=== PATIENT | male | born 1950 | race Caucasian/White ===

== ENCOUNTER 2016-03-20 08:07 | Observation (INO) | payer MEDICARE ==
--- NOTE | 2016-03-13 10:52 | MH ---
cc: KIT CONTRERAS DATE OF ADMISSION: 03/20/2016 PREOPERATIVE DIAGNOSIS: Rotator cuff and right shoulder. PROCEDURE Right shoulder arthroscopy, subacromial decompression with possible rotator cuff repair. CHIEF COMPLAINT AND HISTORY OF PRESENT ILLNESS 65-year-old male with a long history of right shoulder problems. The patient has a history of a left shoulder disarticulation and uses his right upper extremity for all his activities. The patient is however active with golf. He has had progressive right shoulder pain. He has had several treatment modalities in the past including injection, therapy, medication and activity modification with transient relief. The patient did undergo an MRI scan evaluation which showed a full-thickness distal supraspinatus tendon tear. There was partial tearing of the distal subscapularis and medial subluxation of the biceps with moderate to severe glenohumeral joint effusion, distal infraspinatus tendinosis and mild tiny atrophy of the rotator cuff. The patient is very limited in his activity. He also has pain at night and with use. He has been scheduled for previous surgical management on two occasions. However cancelled on his own once and the last time it was cancelled secondary to medical history. The patient does understand the possibility of irreparable rotator cuff tear his present and may not improve his symptomatology. PAST MEDICAL HISTORY: His past medical history is significant for heart disease, hypertension and hyperlipidemia. PAST SURGICAL HISTORY: Previous surgeries include below-knee amputation on the left, left total hip arthroplasty left upper extremity disarticulation. MEDICATIONS: Current medications are metoprolol warfarin ALLERGIES the patient denies drug allergy. FAMILY HISTORY: Family history is significant for cancer. SOCIAL HISTORY The patient denies tobacco and alcohol use. He is single and unemployed. PHYSICAL EXAMINATION Otherwise healthy-appearing male in no obvious distress. HEENT: Normocephalic, atraumatic. Pupils equal, round, reactive to light. Extraocular muscles intact. Oropharynx is clear. NECK: Neck is supple. LUNGS: Lungs are clear to auscultation. HEART: The heart has regular rate and rhythm. ABDOMEN: The abdomen is soft, nondistended. Bowel sounds are present. GENITOURINARY: Genitourinary deferred. RECTUM: Rectal examinations are deferred. EXTREMITIES: The extremities revealed a left upper extremity disarticulation. He has a left below-knee amputation. The right shoulder has no overlying skin change or palpable tenderness. He has a minimally restricted range of motion with impingement. There is pain and mild weakness to supraspinatus and bicipital testing. There is no evidence of instability and neurologically no focal deficit. ASSESSMENT Rotator cuff tear right shoulder. PLAN Given the alternatives of treatment the patient does wish to proceed with arthroscopic evaluation for decompression and rotator cuff repair of possible. The nature of the planned surgical procedure, risks, expected benefits, as well as the postoperative expectations have been discussed with him in detail on several occasions. In addition the alternatives of treatment and risks of same were discussed. The possibility of an irreparable tear and/or the procedure not improving his symptomatology was discussed and he acknowledges full understanding and consents to it. MD CLAUDIA Owen/major /10:46 PM /10:42 AM
[~2016-03-20] VITALS: Ht 177.8 cm; Wt 96.1 kg
[~2016-03-20 08:07] MED LIST: APIX5TAB PO; ENOX100I SQ; LISI-515 PO
[2016-03-20] MEDS: CHLORHEXIDINE GLUCONATE 4% SOLN 120 ML BTL TOP SCH (08:45)
[2016-03-20] MEDS ORDERED: VANCOMYCIN 1000 MG/NS 250 ML (for <70 kg) IV SCH ×2 (08:45)
[2016-03-20] MEDS ORDERED: INSULIN HUMAN REGULAR 1,000 UNITS/10 ML VIAL SQ PRN (08:45)
[2016-03-20] MEDS: LACTATED RINGER'S 1000 ML IV SCH (08:45)
[2016-03-20] MEDS: SODIUM CHLORID 0.9% 500 ML IV SCH (08:45)
[2016-03-20] MEDS ORDERED: METOPROLOL TARTRATE 25 MG TAB PO PRN (08:45)
[2016-03-20 08:52] VITALS: BP 163/69; PULSE 89; RESP 18; TEMP 97.9; O2SAT 94
[2016-03-20] MEDS ORDERED: CLINDAMYCIN 600 MG/NS 100 ML IV SCH ×2 (09:00)
[2016-03-20] MEDS ORDERED: SODIUM CHLORIDE 0.9% INJ 100 ML ONE (09:16)
[2016-03-20] MEDS ORDERED: EPINEPHrine HCL (1:1000) 30 MG/30 ML VIAL ONE (09:27)
[2016-03-20] MEDS ORDERED: BUPIVACAINE HCL PF 0.5% 30 ML VIAL ONE (09:27)
[2016-03-20] MEDS ORDERED: ACETAMINOPHEN 1000 MG/100 ML VIAL IV ONE (11:15)
[2016-03-20] MEDS ORDERED: MIDAZOLAM HCL 2 MG/2 ML VIAL ONE ×2 (11:15→14:46)
[2016-03-20] MEDS ORDERED: HYDROmorphone HCL PF 2 MG/ML VIAL ONE (11:16)
[2016-03-20] MEDS ORDERED: fentaNYL CITRATE 250 MCG/5 ML AMP ONE (11:16)
[2016-03-20] MEDS ORDERED: PROPOFOL 200 MG/20 ML AMP IV ONE (11:25)
[2016-03-20] MEDS ORDERED: NEOSTIGMINE 3 MG/3 ML SYR IV ONE (11:25)
[2016-03-20] MEDS ORDERED: PHENYLEPH/NS 1000 MCG/10 ML SYR IV ONE (11:25)
[2016-03-20] MEDS ORDERED: ONDANSETRON HCL 4 MG/2 ML VIAL IV PUSH ONE (11:25)
[2016-03-20] MEDS ORDERED: BUPIVACAINE/EPINEPHRINE 0.5% PF 30 ML VIAL ONE (11:31)
--- NOTE | 2016-03-20 14:12 | PD.OP ---
cc: Nam Aceves MD Operative Report Date of Surgery: Mar 20, 2016 Preoperative Diagnosis: (1) Complete rotator cuff tear or rupture of right shoulder, not specified as traumatic Postoperative Diagnosis: (1) Complete rotator cuff tear or rupture of right shoulder, not specified as traumatic (2) Traumatic partial tear of biceps tendon Procedure: Right shoulder arthroscopy, subacromial decompression, debridement of partial biceps tendon tear with mini open rotator cuff repair Implants: [employer] multi fix 5.5 anchors Anesthesia: Gen. Surgeon: Nam Aceves Piped Pocket Machine Operator(s): Cristal Pardo PA-C (Ashley) The surgical procedure was assisted by my physician's chemical laboratory assistant. Her presence was necessary throughout the case for manipulation and positioning of the surgical extremity. My PA was assisting me throughout the duration of this procedure. The skill set of the physician chemical laboratory assistant was medically necessary to complete this procedure. During the surgical case the surgical pathologist was working at the back table and the physician chemical laboratory assistant was directly assisting me. Operation and Findings: Indications: This 65-year-old male has a long history of right shoulder problems. The patient has had a previous left shoulder disarticulation and uses his right upper extremity for all activities. He is also active with golf. He's had progressive pain in the right shoulder. He has been unresponsive to treatment including injection, therapy, medication and activity modification. An MRI scan was completed which revealed a full-thickness tear of the supraspinatus. He has had previous scheduled surgery which has been canceled on 3 occasions. He now presents for arthroscopic evaluation with repair as indicated. The patient understands a functional limitations associated with the procedure Procedure and findings: The patient was taken to the operative suite and after undergoing an adequate level of general anesthesia as well as placement of a central line by anesthesia was placed in the lateral decubitus position on the operating table. His examination did not reveal any restricted mobility or instability. The right upper extremity was positioned in a shoulder august in approximately 70 of abduction and 30 of forward flexion. It was then prepped and draped in usual sterile fashion with Betadine. Preoperative antibiotics consisted of clindamycin 900 mg and vancomycin 1 g IV. Standard arthroscopic portals were status with a posterior camera portal. The joint was entered bluntly with a trocar. Distention of the joint was maintained with an arthroscopic pump. An anterior incision and portal was established and the interval between the biceps and subscapularis tendons. Inspection of the glenohumeral joint revealed no articular cartilage of the mallet. There was moderate fraying of the biceps. There was an obvious large tear of the supraspinatus with medial retraction. The posterior aspect of the rotator cuff appeared intact. An arthroscopic shaver was utilized to debride the undersurface of the supraspinatus tear as well as the partial biceps tendon tear. Once this was completed the arthroscope and internal rotation were removed from the glenohumeral joint. The arm was then positioned in 30 of abduction and neutral forward flexion. The same posterior skin incision was used for a subacromial camera portal. A separate lateral portal was then established two fingerbreadths distal to the acromial tip in the anterior one third. A very thickened and inflamed subacromial bursa was excised. An acromioplasty was completed with an arthroscopic bur abrading the undersurface of the acromion up to the level of the deltoid insertion anteriorly allowing the coracoacromial ligament to retract. Additional release was completed with electric cautery device. The bursal surface of rotator cuff was inspected and the full-thickness tear again noted. There was a longitudinal component and posterior retraction. Once adequate decompression had been completed the arthroscope and instrumentation were removed. The lateral portal incision was then extended for a distance of the proximal a 4 cm. The muscular fascia was incised and split longitudinally. The subdeltoid bursa was partially excised. The rotator cuff tear was identified. The longitudinal component was closed primarily. Magnum wire and ultra tape were placed into the tendon edge. Roughening of the tuberosity was accomplished with a rongeur. 2 punch holes were made. The multi fix anchors were then loaded and seated. This gave a nice repair. The wound was then thoroughly irrigated. It was closed in layers utilizing 0 Vicryl suture on the muscular fascia, 2-0 Vicryl suture and the subcutaneous tense tissue and shree on the skin. Sterile dressings were applied. The patient was awakened, transferred to the hospital stretcher and taken to the recovery room in stable condition. Estimated blood loss: Approximately 50 cc Complications: None Aceves,Nam K MD Mar 20, 2016 14:11
[2016-03-20] MEDS ORDERED: SODIUM CHLORIDE 0.9% FLUSH 5 ML FLUSH IVF PRN (14:15)
[2016-03-20] MEDS ORDERED: MORPHINE SULFATE 4 MG/ML INJ IV PUSH PRN (14:15)
[2016-03-20] MEDS ORDERED: *morphine SULFATE 8 MG/ML PERIprocedure ONLY ONE ×2 (14:37→14:55)
[2016-03-20] MEDS ORDERED: *ONDANSETRON 4 MG VIAL PERIprocedural Use ONLY ONE (14:57)
[2016-03-20] MEDS: LACTATED RINGER'S 1000 ML INJ 1,000 ML IV SCH (15:30)
--- NOTE | 2016-03-20 16:11 | RADRPT ---
EXAM DATE/TIME: 03/20/2016 15:01 [facility] COMPARISON: No previous studies available for comparison. INDICATIONS : Central line placement. MEDICAL HISTORY : None. SURGICAL HISTORY : None. ENCOUNTER: Initial ACUITY: 1 day PAIN SCORE: Non-responsive. LOCATION: Bilateral chest FINDINGS: The heart is enlarged. Patchiness is noted within the left lung base consistent with atelectasis and/ or mild infiltrate. The right lung is clear. CONCLUSION: 1. Left basilar patchiness consistent with atelectasis and/or infiltrate. 2. Cardiomegaly. Alfredo Campbell MD on March 20, 2016 at 16:06 Board Certified Radiologist. This report was verified electronically.
[2016-03-20 16:34] VITALS: BP 166/80; PULSE 85; RESP 18; TEMP 95.6; O2SAT 94
[2016-03-20] MEDS: ONDANSETRON HCL 4 MG/2 ML VIAL IV PRN (16:48)
[2016-03-20] MEDS: oxyCODONE/ACETAMINOPHEN 5 MG/325 MG TAB PO PRN (19:09)
[2016-03-20 20:15] VITALS: BP 190/88; PULSE 96; RESP 20; TEMP 96.1; O2SAT 97
[2016-03-20] MEDS: MORPHINE SULFATE 8 MG/ML INJ IV PUSH PRN (20:25)
[2016-03-20] MEDS: SODIUM CHLORIDE 0.9% FLUSH 5 ML FLUSH IVF SCH (21:00)
[2016-03-20] MEDS: APIXABAN 5 MG TABLET PO SCH (21:00)
[2016-03-20 22:26] VITALS: O2SAT 97
[2016-03-21] VITALS (8 sets, daily range): BP systolic 134–199; BP diastolic 59–105; PULSE 84–104; RESP 16–20; TEMP 95.4–98.6; O2SAT 94–97
[2016-03-21] MEDS: MORPHINE SULFATE 8 MG/ML INJ IV PUSH PRN ×2 (00:13→06:11)
[2016-03-21] MEDS: SODIUM CHLORID 0.9% 500 ML IV SCH (01:25)
[2016-03-21] MEDS: oxyCODONE/ACETAMINOPHEN 5 MG/325 MG TAB PO PRN ×4 (03:50→21:45)
[2016-03-21] MEDS: LACTATED RINGER'S 1000 ML INJ 1,000 ML IV SCH (04:32)
--- NOTE | 2016-03-21 06:42 | PD.ORT.PN ---
Subjective Post Op Day #: 1 Pain Scale: 3 Subjective Remarks The patient is awake and alert and answers questions appropriately. He is having moderate discomfort. It is controlled with medication. He is having the expected difficulty moving about secondary to his left shoulder disarticulation Objective Vitals Vital Signs Date Time Temp Pulse Resp B/P Pulse Ox O2 Delivery O2 Flow Rate FiO2 03/21/16 00:35 95.4 100 19 140/59 94 03/20/16 22:26 97 21 03/20/16 20:15 96.1 96 20 190/88 97 03/20/16 16:34 95.6 85 18 166/80 94 03/20/16 16:00 84 16 139/69 95 Nasal Cannula 3 03/20/16 15:45 80 16 140/69 95 Nasal Cannula 3 03/20/16 15:30 76 16 150/62 95 Nasal Cannula 3 03/20/16 15:15 74 16 151/70 95 Nasal Cannula 3 03/20/16 15:00 74 16 152/74 95 Nasal Cannula 3 03/20/16 14:45 80 16 153/80 94 Nasal Cannula 3 03/20/16 14:30 82 16 159/85 94 Nasal Cannula 3 03/20/16 14:20 97.7 86 16 166/85 93 Nasal Cannula 3 03/20/16 08:52 97.9 89 18 163/69 94 I/O 03/20/16 03/20/16 03/20/16 03/21/16 03/21/16 03/21/16 07:00 15:00 23:00 07:00 15:00 23:00 Intake Total 290 ml Balance 290 ml Intake Oral 240 ml IV Total 50 ml # Voids 1 # Bowel Movements 0 Procedures Right shoulder arthroscopy, subacromial decompression with mini open rotator cuff repair 03/20/16 Objective Remarks The patient is awake and alert and answers questions properly. His right shoulder dressing is dry and intact. He moves his elbow and wrist freely. Neurologically no focal deficit. Assessment & Plan Problem List: (1) Complete rotator cuff tear or rupture of right shoulder, not specified as traumatic Assessment and Plan The patient's orthopedic status is stable postoperative day #1. He is having moderate discomfort and because of his functional limitations with his only functional extremity immobilized once to stay another day. This will allow him to make arrangements for home. Anticipate discharge 03/22/16. Nam Aceves MD Mar 21, 2016 06:42
[2016-03-21] MEDS: CHLORHEXIDINE GLUCONATE 4% SOLN 120 ML BTL TOP SCH (08:45)
[2016-03-21] MEDS: LACTATED RINGER'S 1000 ML IV SCH (08:45)
[2016-03-21] MEDS: LISINOPRIL 20 MG TAB PO SCH (09:21)
[2016-03-21] MEDS: APIXABAN 5 MG TABLET PO SCH ×2 (09:21→21:44)
[2016-03-21] MEDS: SODIUM CHLORIDE 0.9% FLUSH 5 ML FLUSH IVF SCH ×2 (09:21→21:44)
[2016-03-21] MEDS ORDERED: cloNIDine HCL 0.1 MG TAB PO ONE (19:30)
[2016-03-21] MEDS ORDERED: MORPHINE SULFATE 4 MG/ML INJ IV PUSH PRN (19:30)
[2016-03-21] MEDS: ONDANSETRON HCL 4 MG/2 ML VIAL IV PRN (19:58)
[2016-03-22 00:10] VITALS: BP 133/79; PULSE 99; RESP 19; TEMP 97.8; O2SAT 94
[2016-03-22] MEDS: oxyCODONE/ACETAMINOPHEN 5 MG/325 MG TAB PO PRN ×2 (02:01→09:31)
[2016-03-22 03:42] VITALS: BP 150/86; PULSE 86; RESP 16; TEMP 98.4; O2SAT 93
--- NOTE | 2016-03-22 07:25 | PD.ORT.PN ---
Subjective Post Op Day #: 2 Subjective Remarks Pt is laying comfortably in bed, awake and answering questions appropriately. He admits his right shoulder pain is under control today. He states he has been ambulating to use the restroom 'okay'. He is not in his sling. No other complaints noted. Objective Vitals Vital Signs Date Time Temp Pulse Resp B/P Pulse Ox O2 Delivery O2 Flow Rate FiO2 03/22/16 03:42 98.4 86 16 150/86 93 03/22/16 00:10 97.8 99 19 133/79 94 03/21/16 20:00 98.6 93 20 163/82 95 03/21/16 18:04 21 03/21/16 17:10 195/69 03/21/16 16:50 97.4 95 20 175/105 96 03/21/16 14:58 95 199/94 03/21/16 12:00 97.4 84 16 182/69 97 03/21/16 10:23 17 03/21/16 07:51 96.9 104 18 134/73 97 I/O 03/21/16 03/21/16 03/21/16 03/22/16 03/22/16 03/22/16 07:00 15:00 23:00 07:00 15:00 23:00 Intake Total 240 ml 1280 ml 600 ml 480 ml Balance 240 ml 1280 ml 600 ml 480 ml Intake Oral 240 ml 1280 ml 600 ml 480 ml # Voids 2 4 5 2 # Bowel Movements 0 0 0 Procedures Right shoulder arthroscopy, subacromial decompression with mini open rotator cuff repair 03/20/16 Objective Remarks The patient is awake and alert and answers questions properly. His right shoulder dressing is dry and intact. He moves his elbow and wrist freely. Neurologically no focal deficit. Assessment & Plan Ortho Post Op Day #: 2 Problem List: (1) Complete rotator cuff tear or rupture of right shoulder, not specified as traumatic Assessment and Plan The patient's orthopedic status is stable postoperative day #2. His pain better controlled today. Because of his functional limitations with his only functional extremity immobilized he will require home health. Anticipate discharge today 03/22/16. Cristal Pardo Mar 22, 2016 07:25
--- NOTE | 2016-03-22 07:31 | HHI.FF ---
Face to Face Verification Diagnosis: (1) Complete rotator cuff tear or rupture of right shoulder, not specified as traumatic (2) Traumatic partial tear of biceps tendon Physical Therapy Gait training, Safety evaluation, Transfer training, bed to chair Occupational Therapy Right UE Weight Bearing: Non WB Right UE Range of Motion: Passive ROM Nursing RN: 3 days/week x 2 weeks Nursing: Dressing changes Dressing Changes: Daily dressing change, 4x4s, Xeroform Additional Instructions Remove shree 03/28/16 I have seen patient Ramon Woodson on 03/22/16. My clinical findings support the need for the requested home health care services because: his only functional upper extremity (right) is immobilized due to his shoulder disarticulation (left) side which he cannot use fully. Limited ability to care for self High risk of falls I certify that my clinical findings support that this patient is homebound because: Post-op weakness Unsteady gait/balance Unsafe to leave home unassisted Cristal Pardo Mar 22, 2016 07:31
[2016-03-22] MEDS ORDERED: OXYC1TAB63 PO (07:38)
[2016-03-22] MEDS ORDERED: REST15CA PO (07:39)
--- NOTE | 2016-03-22 07:53 | HHI.DS ---
Discharge Summary Admission Date Mar 20, 2016 at 14:19 Discharge Date: Mar 22, 2016 Admitting Diagnosis Right Rotator Cuff Tear Diagnosis: (1) Complete rotator cuff tear or rupture of right shoulder, not specified as traumatic Diagnosis: Principal Procedures Right shoulder arthroscopy, subacromial decompression with mini open rotator cuff repair 03/20/16 Brief History This is a 65 year old male patient with a long history of right shoulder problems. The patient has a history of a left shoulder disarticulation and uses his right upper extremity for all his activities. He has had progressive right shoulder pain. He has had several treatment modalities in the past including injection, therapy, medication and activity modification with transient relief. The patient did undergo an MRI scan evaluation which showed a full-thickness distal supraspinatus tendon tear. There was partial tearing of the distal subscapularis and medial subluxation of the biceps with moderate to severe glenohumeral joint effusion, distal infraspinatus tendinosis and mild tiny atrophy of the rotator cuff. The patient was very limited in his activity. He was then scheduled for surgical repair at this point. PE at Discharge The patient is awake and alert and answers questions properly. His right shoulder dressing is dry and intact. He moves his elbow and wrist freely. Neurologically no focal deficit. Hospital Course The patient was admitted on 03/20/16 after right shoulder arthroscopy, subacromial decompression and mini open rotator cuff repair. At the time of the procedure, the patient had poor vascular access and required a several attempt central line placement. This required overnight stay in the hospital for observation. Due to patient's poor functional status with previous disarticulation of left extremity he required over night stay in the hospital for care. The patient was monitored for 2 days. He will be discharged in good condition with pain under control. He will have home health assigned to him. Pt Condition on Discharge: Good Discharge Disposition: Disch w/ Home Health Serv Discharge Instructions Diet Instructions: As Tolerated, No Restrictions Activities You Can Perform: Weight Bearing as Ratna Activities to Avoid: Lifting/Bending Cristal Pardo Mar 22, 2016 07:53
[2016-03-22 08:10] VITALS: BP 136/74; PULSE 90; RESP 16; TEMP 97.4; O2SAT 94
[2016-03-22] MEDS: CHLORHEXIDINE GLUCONATE 4% SOLN 120 ML BTL TOP SCH (08:45)
[2016-03-22] MEDS: SODIUM CHLORIDE 0.9% FLUSH 5 ML FLUSH IVF SCH (09:00)
[2016-03-22] MEDS: LISINOPRIL 20 MG TAB PO SCH (09:31)
[2016-03-22] MEDS: APIXABAN 5 MG TABLET PO SCH (09:31)
[2016-04-13] MEDS ORDERED: BACT800T5 PO (09:41)
[2016-05-04] MEDS ORDERED: LEVA750T PO (10:04)
[2016-05-25] MEDS ORDERED: DOXY100C PO (09:26)
[2016-06-01] MEDS ORDERED: CLIN1CAP6 PO (09:41)
[2016-07-06] MEDS ORDERED: ASPI325T PO (09:24)
[2016-07-13] MEDS ORDERED: PERC5TAB12 PO (09:45)
[2016-07-13] MEDS ORDERED: METO25TA3 PO (09:45)
[2016-08-03] MEDS ORDERED: CLIN1CAP6 PO (09:28)
== END 2016-03-22 11:40 | disposition home or self-care (01) ==
LOC: HSDC 08:07 → HSDI 14:19 → N06B 16:36
PROVIDERS: ADMIT Orthopaedic Surgery Sports Medicine; ATTEND Orthopaedic Surgery Sports Medicine
DX: M75.121 Complete rotator cuff tear or rupture of right shoulder, not specified as traumatic (principal); S46.211A Strain of muscle, fascia and tendon of other parts of biceps, right arm, initial encounter; I10 Essential (primary) hypertension; I25.10 Atherosclerotic heart disease of native coronary artery without angina pectoris; E78.5 Hyperlipidemia, unspecified; Z96.642 Presence of left artificial hip joint; Z89.512 Acquired absence of left leg below knee; Z79.01 Long term (current) use of anticoagulants
CPT/HCPCS: 01610; 23412; 29822; 29826; 71010; 86850; 86900; 86901; C1713; G0378; J0131; J0171; J2250; J2270; J2370; J2405; J2710; J3010; J7120; J1170

== ENCOUNTER 2016-08-05 21:43 | Emergency (ER) | payer MEDICARE ==
[~2016-08-05] VITALS: Ht 177.8 cm; Wt 95.0 kg
[~2016-08-05 21:43] MED LIST changes: -APIX5TAB PO; +ASPI325T PO; +CLIN1CAP6 PO; -ENOX100I SQ; -LISI-515 PO; +METO25TA3 PO; +PERC5TAB12 PO
[2016-08-05 21:45] VITALS: BP 203/86; PULSE 72; RESP 16; TEMP 97.6; O2SAT 97
[2016-08-05] MEDS ORDERED: LISI-515 PO (21:58)
[2016-08-05 22:07] VITALS: BP 129/82; PULSE 71; RESP 16; O2SAT 97
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
[2016-08-05 23:26] VITALS: BP 156/82; PULSE 80; RESP 16; O2SAT 97
[2016-08-06] VITALS: BP 151/88; PULSE 81; RESP 16; O2SAT 99
[2016-08-06 00:32] LABS: BICARBONATE 25.1 MEQ/L (21.0-32.0); POTASSIUM 3.9 MEQ/L (3.5-5.1)
== END 2016-08-06 01:26 | disposition home or self-care (01) ==
LOC: NEPC 21:43
DX: I10 Essential (primary) hypertension (principal); M19.90 Unspecified osteoarthritis, unspecified site; I25.10 Atherosclerotic heart disease of native coronary artery without angina pectoris; E78.00 Pure hypercholesterolemia, unspecified; Z86.718 Personal history of other venous thrombosis and embolism; Z89.512 Acquired absence of left leg below knee; Z79.899 Other long term (current) drug therapy; Z79.82 Long term (current) use of aspirin; Z88.0 Allergy status to penicillin
CPT/HCPCS: 80048; 99283

== ENCOUNTER 2016-12-04 12:46 | Emergency (ER) | payer MEDICARE ==
[~2016-12-04] VITALS: Ht 177.8 cm; Wt 98.0 kg
[~2016-12-04 12:46] MED LIST changes: -CLIN1CAP6 PO; +LISI-515 PO; -METO25TA3 PO; +METO50TA PO; -PERC5TAB12 PO
[2016-12-04 12:49] VITALS: BP 174/94; PULSE 64; RESP 14; TEMP 98.2; O2SAT 97
[2016-12-04] MEDS ORDERED: LIDOCAINE HCL 1% 20 ML VIAL INFIL ONE (15:30)
[2016-12-04] MEDS ORDERED: TETANUS/DIPHTHERIA TOXOID ADULT 0.5 ML VIAL IM ONE (15:45)
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
== END 2016-12-04 16:45 | disposition home or self-care (01) ==
LOC: NEPD 12:46
DX: S81.812A Laceration without foreign body, left lower leg, initial encounter (principal); X58.XXXA Exposure to other specified factors, initial encounter; Z23 Encounter for immunization; Z89.512 Acquired absence of left leg below knee
CPT/HCPCS: 12001; 90471; 90714